=== PATIENT | female | born 1965 | race Caucasian/White ===

== ENCOUNTER 2018-01-10 18:22 | Emergency (ER) | payer SELFPAY, OTHER | END 2018-01-10 21:30 | disposition home or self-care (01) | LOC: FTE 18:22 | DX: H10.33 Unspecified acute conjunctivitis, bilateral (principal); I10 Essential (primary) hypertension | CPT/HCPCS: 99283 ==

== ENCOUNTER 2018-08-14 21:12 | Emergency (ER) | payer SELFPAY ==
[2018-08-15] MEDS: morphine 10 MG INJ IM (01:39)
[2018-08-15] MEDS: KETOROLAC 60 MG INJ IM (01:39)
[2018-08-15] MEDS: HYDROCODONE/APAP (10/325) TAB PO (03:13)
== END 2018-08-15 04:12 | disposition home or self-care (01) ==
LOC: FTE 21:12
DX: K08.89 Other specified disorders of teeth and supporting structures (principal); I10 Essential (primary) hypertension
CPT/HCPCS: 81025; 96372; 99284-25

== ENCOUNTER 2018-08-19 19:53 | Emergency (ER) | payer MEDICAID, OTHER ==
[2018-08-19] MEDS: NIFEdipine (XL) 30 MG TAB PO (22:53)
[2018-08-19 22:56] LABS: ADD MAN DIFF? NO
[2018-08-19 22:58] LABS: BASOPHIL # 0.1 10^3/ul (0.0-0.1); BASOPHILS % 0.6 % (0.0-2.0); EOSINOPHILS # 0.2 10^3/ul (0.0-0.5); EOSINOPHILS % 1.9 % (0.0-7.0); HEMATOCRIT 42.6 % (37.0-47.0); HEMOGLOBIN 13.9 g/dl (12.0-16.0); LYMPHOCYTES # 3.1 10^3/ul (0.8-2.9); LYMPHOCYTES % 28.8 % (15.0-51.0); MEAN CORPUSCULAR HEMOGLOBIN 26.9 pg (29.0-33.0); MEAN CORPUSCULAR HGB CONC 32.6 g/dl (32.0-37.0); MEAN CORPUSCULAR VOLUME 82.6 fl (82.0-101.0); MEAN PLATELET VOLUME 10.5 fl (7.4-10.4); MONOCYTE # 0.9 10^3/ul (0.3-0.9); MONOCYTES % 8.2 % (0.0-11.0); NEUTROPHIL # 6.5 10^3/ul (1.6-7.5); NEUTROPHILS % 59.8 % (39.0-77.0); PLATELET COUNT 270 10^3/UL (140-415); RED BLOOD COUNT 5.16 10^6/ul (4.20-5.40); RED CELL DISTRIBUTION WIDTH 13.4 % (11.5-14.5)
[2018-08-19 22:58] LABS: WHITE BLOOD COUNT 10.8 10^3/ul (4.8-10.8)
[2018-08-19 23:19] LABS: ANION GAP 8 (5-13); BLOOD UREA NITROGEN 18 mg/dl (7-20); CALCIUM 9.4 mg/dl (8.4-10.2); CARBON DIOXIDE 34 mmol/L (21-31); CHLORIDE 100 mmol/L (97-110); CREATININE 0.66 mg/dl (0.44-1.00); Estimated GFR > 60 mL/min (>60); GLUCOSE 103 mg/dl (70-220); SODIUM 142 mmol/L (135-144)
[2018-08-19] MEDS: HYDROCODONE/APAP (10/325) TAB PO (23:35)
[2018-08-19] MEDS: LABETALOL HCL 20MG INJ IV (23:35)
[2018-08-19] MEDS: ONDANSETRON (ODT) 4 MG TAB ODT (23:35)
[2018-08-20] MEDS: POTASSIUM CHLORIDE (SR) 20 MEQ TAB PO (00:24)
== END 2018-08-20 00:25 | disposition home or self-care (01) ==
LOC: E/R 08-20 00:25
DX: I16.0 Hypertensive urgency (principal); E87.6 Hypokalemia; K08.89 Other specified disorders of teeth and supporting structures
CPT/HCPCS: 80048; 85025; 96374; 99284-25